=== PATIENT | female | born 1985 | race Hispanic/Latino ===

== ENCOUNTER 2022-09-30 15:10 | Observation (INO) | payer BC ==
[~2022-09-30] VITALS: Ht 167.6 cm; Wt 84.8 kg
[~2022-09-30 15:10] MED LIST: DOXY1TAB3 PO; ONDA4TAB4 PO; PREN-154 PO
[2022-09-30] MEDS ORDERED: TERBUTALINE SULFATE VIAL 1MG/ML SQ PRN (15:30)
[2022-09-30] MEDS ORDERED: LACTATED RINGERS 1000ML IV SCH (15:30)
[2022-09-30 15:47] LABS: APPEARANCE,URINE CLEAR (CLEAR); BILIRUBIN,URINE NEGATIVE (NEGATIVE); COLOR,URINE COLORLESS (YELLOW); GLUCOSE, URINE (UA) NEGATIVE (NEGATIVE); KETONES,URINE NEGATIVE (NEGATIVE); LEUKOCYTE ESTERASE ,URINE NEGATIVE Leu/uL (NEGATIVE); NITRATE,URINE NEGATIVE (NEGATIVE); OCCULT BLOOD,URINE NEGATIVE (NEGATIVE); PH,URINE 6.5 (5.0-8.0); PROTEIN,URINE NEGATIVE (NEGATIVE); UROBILINOGEN,URINE 0.2 mg/dL (0.2-1.0)
[2022-09-30 15:50] LABS: OTHER CASTS, URINE 1 /LPF (None Seen); RBC,URINE 0-1 /HPF (0-1); SQUAMOUS EPITHELIAL CELL,UR RARE /HPF (0-2); WBC,URINE 0-1 /HPF (0-1)
== END 2022-09-30 16:20 | disposition home or self-care (01) ==
LOC: LDH 15:10
PROVIDERS: ADMIT Obstetrics & Gynecology; ATTEND Obstetrics & Gynecology
DX: O62.9 Abnormality of forces of labor, unspecified (principal); Z3A.33 33 weeks gestation of pregnancy; Z79.899 Other long term (current) drug therapy; Z98.890 Other specified postprocedural states; Z98.891 History of uterine scar from previous surgery
CPT/HCPCS: 59025; 81001; G0378; G0379

== ENCOUNTER 2022-10-28 14:35 | Observation (INO) | payer BC ==
[~2022-10-28] VITALS: Ht 167.6 cm; Wt 85.7 kg
[2022-10-28] MEDS ORDERED: LACTATED RINGERS 1000ML IV SCH (15:00)
[2022-10-28] MEDS ORDERED: TERBUTALINE SULFATE VIAL 1MG/ML SQ ONE (15:53)
[2022-10-28] MEDS ORDERED: TERBUTALINE SULFATE VIAL 1MG/ML SQ PRN (16:00)
[2022-10-28 16:03] LABS: APPEARANCE,URINE CLEAR (CLEAR); BILIRUBIN,URINE NEGATIVE (NEGATIVE); COLOR,URINE COLORLESS (YELLOW); GLUCOSE, URINE (UA) NEGATIVE (NEGATIVE); KETONES,URINE 10 mg/dL (NEGATIVE); LEUKOCYTE ESTERASE ,URINE NEGATIVE Leu/uL (NEGATIVE); NITRATE,URINE NEGATIVE (NEGATIVE); OCCULT BLOOD,URINE NEGATIVE (NEGATIVE); PROTEIN,URINE NEGATIVE (NEGATIVE); UROBILINOGEN,URINE 0.2 mg/dL (0.2-1.0)
[2022-10-28 16:07] LABS: BACTERIA,URINE RARE /HPF (None Seen); SQUAMOUS EPITHELIAL CELL,UR RARE /HPF (0-2); WBC,URINE 0-1 /HPF (0-1)
== END 2022-10-28 17:00 | disposition home or self-care (01) ==
LOC: LDH 14:35
PROVIDERS: ADMIT Obstetrics & Gynecology; ATTEND Obstetrics & Gynecology
DX: O62.9 Abnormality of forces of labor, unspecified (principal); O26.893 Other specified pregnancy related conditions, third trimester; L29.9 Pruritus, unspecified; Z3A.37 37 weeks gestation of pregnancy
CPT/HCPCS: 96372; 96360; 96361; 81001; G0378 ×2; G0379; J3105; J7120